=== PATIENT | female | born 1955 | race Caucasian/White ===

== ENCOUNTER → 2018-11-20 | Outpatient (CLI) | payer MEDICARE, BC ==
[~2018-11-20] VITALS: Ht 170.2 cm; Wt 68.2 kg
[2018-11-20 14:21] VITALS: BP 118/64; BP 128/67
== END ==
LOC: AMSURD 11:48
DX: R11.2 Nausea with vomiting, unspecified (principal)
CPT/HCPCS: J2405; J7030

== ENCOUNTER 2020-05-04 02:36 | Observation (INO) | payer MEDICARE, BC ==
[~2020-05-04] VITALS: Ht 162.6 cm; Wt 57.5 kg
[2020-05-04] MEDS ORDERED: ATORVASTATIN CA10 MG PO (03:10)
[2020-05-04 03:15] VITALS: BP 132/79
[2020-05-04 03:52] LABS: EOS # 0.1 (0.04-0.40); EOS % 0.8 % (1.0-5.0); HEMATOCRIT 37.9 % (37.0-47.0); LYMPH# 1.9 (1.50-4.00); MEAN CELL VOLUME 92 fl (78-100); MEAN CORPUSCULAR HEMOGLOBIN 32 pg (27-31); MEAN CORPUSCULAR HGB CONC 34 g/dL (33-37); MEAN PLATELET VOLUME 9.8 fl (7.4-10.4); MONO # 0.7 (0.20-0.80); PLATELET COUNT 276 K/mm3 (130-400); RED BLOOD COUNT 4.12 M/mm3 (4.10-5.30); RED CELL DISTRIBUTION WIDTH 12.2 % (11.5-14.5); WHITE BLOOD COUNT 12.6 K/mm3 (4.8-10.8)
[2020-05-04 03:56] LABS: ALBUMIN 4.5 g/dL (3.4-4.8); POTASSIUM 3.9 mmol/L (3.5-5.1)
[2020-05-04 03:58] LABS: TOTAL PROTEIN 7.3 g/dL (6.2-8.1)
[2020-05-04 04:00] LABS: TOTAL BILIRUBIN 0.4 mg/dL (0.2-1.2)
[2020-05-04 04:09] LABS: NEU # 9.7 (1.40-6.50)
[2020-05-04 06:11] LABS: URINE WBC 0 /hpf (0-3)
[2020-05-04 06:32] LABS: URINE APPEARANCE CLEAR; URINE BILIRUBIN NEGATIVE (NEGATIVE); URINE BLOOD NEGATIVE (NEGATIVE); URINE COLOR YELLOW; URINE GLUCOSE NEGATIVE (NEGATIVE); URINE KETONE 1+ (NEGATIVE); URINE LEUKOCYTE ESTERASE NEGATIVE (NEGATIVE); URINE NITRATE NEGATIVE (NEGATIVE); URINE PROTEIN(semi-quant) NEGATIVE (NEGATIVE); URINE UROBILINOGEN NORMAL (NORMAL)
[2020-05-04 14:16] VITALS: BP 109/68
[2020-05-04 16:39] VITALS: BP 109/68
[2020-05-04 17:19] VITALS: BP 113/72
[2020-05-04 21:43] VITALS: BP 113/69
[2020-05-05 02:09] VITALS: BP 125/77
[2020-05-05 05:52] VITALS: BP 119/68
[2020-05-05 07:06] LABS: POTASSIUM 4.3 mmol/L (3.5-5.1)
[2020-05-05 07:07] LABS: CALCIUM 8.9 mg/dL (8.3-10.5); EOS # 0.1 (0.04-0.40); EOS % 0.7 % (1.0-5.0); HEMATOCRIT 35.9 % (37.0-47.0); HEMOGLOBIN 11.1 g/dL (12.5-16.0); LYMPH# 1.8 (1.50-4.00); MEAN CELL VOLUME 101 fl (78-100); MEAN CORPUSCULAR HEMOGLOBIN 31 pg (27-31); MEAN CORPUSCULAR HGB CONC 31 g/dL (33-37); MEAN PLATELET VOLUME 10.3 fl (7.4-10.4); MONO # 0.7 (0.20-0.80); PLATELET COUNT 297 K/mm3 (130-400); RED BLOOD COUNT 3.54 M/mm3 (4.10-5.30); RED CELL DISTRIBUTION WIDTH 13.3 % (11.5-14.5); WHITE BLOOD COUNT 12.8 K/mm3 (4.8-10.8)
[2020-05-05 10:09] VITALS: BP 120/70
[2020-05-05 14:00] VITALS: BP 136/84
[2020-05-05 18:00] VITALS: BP 131/76
[2020-05-05 23:16] VITALS: BP 137/76
[2020-05-06 02:34] VITALS: BP 133/76
[2020-05-06 06:23] VITALS: BP 127/77
[2020-05-06 10:00] VITALS: BP 115/72
[2020-05-06 14:17] VITALS: BP 113/70
[2020-05-06 18:20] VITALS: BP 133/80
[2020-05-06 21:49] VITALS: BP 145/80
[2020-05-07 01:34] VITALS: BP 120/87
[2020-05-07 06:29] VITALS: BP 122/79
[2020-05-07 09:58] VITALS: BP 109/70
[2020-05-07] MEDS ORDERED: MECLIZINE PO (10:40)
[2020-05-07] MEDS ORDERED: VALIUM 2MG T2 MG/TAB PO (10:40)
[2020-05-07] MEDS ORDERED: ONDANSETRON HYDR4 MG PO (10:41)
[2020-05-07 14:27] VITALS: BP 128/77
[2020-05-08] MEDS ORDERED: VALIUM 2MG T2 MG/TAB PO (13:34)
== END 2020-05-07 15:00 | disposition home or self-care (01) ==
LOC: ED 02:36 → MED/SURG 13:02
PROVIDERS: Nurse Practitioner Family; ADMIT Nurse Practitioner Primary Care
DX: R42 Dizziness and giddiness (principal); R11.2 Nausea with vomiting, unspecified; E78.00 Pure hypercholesterolemia, unspecified
CPT/HCPCS: G0378; J2405; J2550; J3360; J7030

== ENCOUNTER 2020-05-23 11:15 | Outpatient (RCR) | payer MEDICARE, BC ==
[~2020-05-23 11:15] MED LIST: ATORVASTATIN CA10 MG PO; MECLIZINE PO; ONDANSETRON HYDR4 MG PO; VALIUM 2MG T2 MG/TAB PO
== END 2020-05-23 12:00 | disposition still patient (30) ==
LOC: PT 11:15
DX: R42 Dizziness and giddiness (principal)

== ENCOUNTER 2020-05-31 11:15 | Outpatient (RCR) | payer MEDICARE, BC | END 2020-05-31 12:00 | LOC: PT 11:15 | DX: R42 Dizziness and giddiness (principal) ==

== ENCOUNTER → 2022-04-07 | Outpatient (CLI) | payer MEDICARE, BC | LOC: RAD 13:10 | DX: G96.191 Perineural cyst (principal) ==